=== PATIENT | male | born 1970 | race Caucasian/White ===

== ENCOUNTER 2023-12-24 05:56 | Inpatient (IN) | payer BC, SELFPAY ==
[2023-12-24] VITALS (12 sets, daily range): BP systolic 106–143; BP diastolic 66–89; BMI 32.6; BMI 32.8
[2023-12-24 03:02] LABS: % Basophils 0.3 % (0-2); % Eosinophils 0.3 % (0-6); % Immature Granulocytes 0.3 % (0-0.5); % Lymphocytes 10.3 % (20.5-51.1); % Monocytes 6.3 % (1.7-9.3); % Neutrophils 82.5 % (42.2-75.2); Absolute Lymphocytes 1.2 10^3/uL (1.2-3.4); Absolute Monocytes 0.8 10^3/uL (0.1-0.6); Absolute Neutrophils 9.9 10^3/uL (1.4-6.5); Hematocrit 37.3 % (39.0-52.0); Hemoglobin 13.3 g/dL (13.0-18.0); Mean Corp Hgb Conc. 35.7 g/dL (33.0-37.0); Mean Corpuscular Hgb 31.7 pg (27.0-31.0); Mean Corpuscular Volume 88.8 fL (80.0-94.0); Mean Platelet Volume 11.1 fL (7.4-10.4); Nucleated Red Blood Cells % 0 % (-); Platelet Count 179 10^3/uL (130-400); Red Cell Dist. Width 11.9 % (11.5-14.5)
--- NOTE | 2023-12-24 03:06 | ED.GENMED ---
History of Present Illness
<Ethel Horvath PA-C - Last Filed: 12/26/23 15:04>
General
Chief Complaint: Back Pain
Source: patient
Exam Limitations: none
Time Seen by Provider: 12/24/23 02:20
Nursing documentation reviewed up to this point in time: agreed with
Travel History
Have you had any contact with someone who has COVID-19?: No
Do you have any symptoms of coronavirus? Fever > 100 degrees, chills, cough, shortness of breath, sore throat, loss of taste or smell, muscle aches, or headache?: Yes
Symptoms:: fever
History of Present Illness
History of Present Illness:
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
complicated by periprosthetic femur fx dx a few months ago, partial weight bearing with a crutch on left leg
hre with 3 days of right sided back pain
initiatlly thought to be due to overdoing it when he was swimming. He thought may be just pulled some muscles. He has been taking ibuprofen 3 times a day which does significantly help. He is able to still do activities but then last night he had
an episode where he felt like it went into spasm and he had trouble breathing. Patient says he was hyperventilating and having a large hard time taking deep breaths. He was able to take Motrin and waited out and it calmed down. Again that type of
episode happened this evening around 1130 and lasted about half an hour. Patient's says that he was in distress when she got to him, he was hyperventilating and unable to move to get up from lying down. Both episodes happen when he laid down
flat in his bed. Patient has not had any radiation of pain around his abdomen or down his legs. He has not had any coughing or cold symptoms. He did have a cough 2 weeks ago which was COVID-negative. Patient has not had any urinary distress or
hematuria. He has never had a kidney stone. He never got nauseated but did get some GERD symptoms following both of the more hyperventilating episodes. Now just laying here is about 5 out of 10 discomfort on the right back but when he takes a
deep breath it is 8 out of 10. Patient last took Motrin around 11:30 PM.
Last year he had a negative stress test which was done because of an abnormal EKG, with a chronic T wave inversion.
Patient does have a history of what sounds to be superficial thrombophlebitis after travel on an airplane few years ago which was not anticoagulated
Past History
<Ethel Horvath PA-C - Last Filed: 12/26/23 15:04>
Past History
ED Past Medical History: None
ED Past Surgical History: None
Social History
Tobacco: Non-smoker
Alcohol: Occasional
Drug: None
Personal:
Living: with family
Review of Systems
<Ethel Horvath PA-C - Last Filed: 12/26/23 15:04>
Review of Systems
Allergies reviewed?: Yes
All Other Systems: Not applicable
Phy Exam
<JAYRO Omalley Last Filed: 12/26/23 15:04>
Physical Exam
Physical Exam:
GENERAL: Alert , in no apparent distress
EYE: pupils equal and reactive
NECK: Supple
ENT: o/p clr, mmm.
CARDIAC: Regular rate and rhythm .
LUNGS: Clear breath sounds bilaterally, no acute respiratory distress, no wheezes/rales/rhonchi
No obvious crackles. No cough
ABDOMEN: Soft, without focal tenderness, no r/g, no cvat, normal bowel sounds negative Mccord sign
NEUROLOGICAL: Alert and oriented, no focal neuro deficits
SKIN: Warm and dry, skin intact.
MUSCULOSKELETAL: Left calf appears slightly more swollen than the right, no tenderness
PSYCH: Normal and appropriate interaction.
Course
<Ethel Horvath PA-C - Last Filed: 12/26/23 15:04>
Orders/Labs/Results
Orders:
Orders
12/24/23 00:12
EKG- Treatment ONCE
12/24/23 02:07
Electrocardiogram (*1) Urgent
Reason for Study: Other
Other Reason for Exam: Possible Sepsis
Cardiac Monitoring- Treatment ONCE
IV Insert/Care/Rem.- Treatment PRN
O2 Therapy [RESP] Urgent
Titrate/Wean O2 to maintain O2 sat greater than (%): 93
Special Instructions: TO MAINTAIN CONTINUOUS O2 SATS > OR = 93%
Pulse Ox/cont/shift [RESP] Urgent
Quantity: 1
Special Instructions: CONTINUOUS
12/24/23 02:08
EKG- Treatment ONCE
12/24/23 02:51
Complete Blood Count/With Diff Urgent
Comprehensive Metabolic Panel Urgent
Lactic Acid Q4H
Comment: ON ICE, CANCEL 2ND ORDER IF FIRST LACTIC ACID LEVEL <2
Blood Culture Q30M
SONIA Source: Blood/Venous
Specimen Description:
Comment: FROM 2 SEPARATE SITES
Blood Culture Q30M
SONIA Source: Blood/Venous
Specimen Description:
Comment: FROM 2 SEPARATE SITES
12/24/23 03:02
CT Chest Pe Study Urgent
Comment:
Reason For Exam: RIGHT SIDED PLEURITIC BACK PAIN
Acetaminophen [Tylenol] 650 mg PO NOW STA
12/24/23 03:09
Troponin I Urgent
12/24/23 03:33
Urinalysis Reflex To Culture Urgent
Date Specimen was Collected: 12/24/23
Time Specimen was Collected: 02:08
12/24/23 03:34
PTT Urgent
Prothrombin Time Urgent
Comment: REDAW, ORIGINAL SAMPLE WAS UNDERFILLED
12/24/23 04:47
Heparin 8,700 units IV NOW STA
12/24/23 05:00
Heparin 30745 Units/250 ml 25,000 units in 250 ml IV PER PROTOCOL
Weight to be used for heparin protocol in kilograms (kg):: 108.862
Protocol:: DVT/PE
PTT Goal Range to be used:: PTT 73 to 111 seconds
Order type:: Initial
INITIAL Infusion Dose (UNITS/KG/hr) & then follow protocol:: 18 units/kg/hr
Infusion Dose in UNITS/hr & then follow protocol (UNITS/hr):: 2,000
INFUSION RATE in mL/hr & then follow protocol (mL/hr):: 20
For DVT/PE algorithm, re-bolus for low PTT?: Yes
PTT less than or equal to 64 seconds:: Re-bolus 80 units/kg (max 10,000units). Increase by 400 units/hr
(+ 4mL/hr)
PTT 64.1 to 72.9 seconds:: Re-bolus 40 units/kg (max 5,000 units). Increase by 200 units/hr
(+ 2mL/hr)
PTT 73 to 111 seconds:: Target Range. No change in rate.
PTT 111.1 to 130.9 seconds:: Decrease rate by 200 units/hr (- 2 mL/hr)
PTT 131 to 199.9 seconds:: HOLD for 1 hr. Then decrease by 300 units/hr (- 3mL/hr)
PTT greater than or equal to 200 seconds:: HOLD for 2 hrs & Notify Provider. Then decrease by 400 units/hr
(- 4mL/hr)
Lab follow-up:: Each change, PTT q6h until 2 consecutive are therapeutic. Then
PTT daily.
12/24/23 05:03
Heparin 8,700 units IV PRN PRN
12/24/23 05:04
Heparin 4,400 units IV PRN PRN
12/24/23 05:17
Admit/Transfer Patient As Directed
Co-Sign Provider:
Level of Care: Inpatient admission
Assign to:: Telemetry
Physician / Group: manny
Diagnosis: acute provoked PE, Rt sided pleuritic CP
Reason for Telemetry: Other
Other Reason for Telemetry: acute PE
Date to Stop Telemetry: 12/26/23
Time to Stop Telemetry: 11:00
Reason for Hospitalization: acute provoked PE, Rt sided pleuritic CP , marginal hypoxic RI
Expected length of stay greater than two midnights?: Yes
ELOS- Estimated Length of Stay in days: 3
I certify the patient meets the requirements for IP care: Yes
12/24/23 05:18
Code Status As Directed
Resuscitation Status: Full Code
12/24/23 Breakfast
Regular
At Your Request: Full Participation
Does patient need a safe tray?: No
Flush (0.9% Sodium Chloride) [Flush (Nss)] See Dose Instructions IV PER PROTOCOL
12/24/23 08:40
Ascorbic Acid [Vitamin C] 500 mg PO DAILY
Cholecalciferol (Vitamin D3) [VITAMIN D3 (cholecalciferol)] 25 mcg PO DAILY
Oxycodone/Acetaminophen [Percocet 5/325] 1 tablet PO Q4HPRN PRN
12/24/23 08:40
Consult Notification Routine
Specialty to Notify: Pulmonary
Date consulting provider notified: 12/24/23
Time consulting provider notified: 08:59
Notified:: Provider
Comment: TT NOTIFIED
PULMONARY CONSULT Routine
Consulting Provider: Kwesi Ann
Was physician already notified: No
Reason for consult: acute PE
Activity As Directed
Activity Level: With Assistance
Bladder Scan As Directed
Follow Bladder Retention/Intermittent Cath Algorithm?: Yes
Frequency: Per Retention Algorithm
Comment: as per intermittent urinary catheter algorithm
Bladder Scan As Directed
Follow Bladder Retention/Intermittent Cath Algorithm?: Yes
PRN if no void in __ hours: 6
Frequency: Per Retention Algorithm
If Bladder Scan Result >: 400
then:: Straight cath
Intake/ Output As Directed
Frequency: Per unit guidelines
Straight Cath As Directed
Frequency: Per Retention Algorithm
Additional Instructions: as per intermittent urinary catheter algorithm
Straight Cath As Directed
Frequency: Per Retention Algorithm
Additional Instructions: straight cath as needed per acute urinary retention algorithm for 24 hrs
Additional Instructions: for bladder scan greater than 400 mL
Vital Signs As Directed
Frequency: Per unit guidelines
Pulse Ox/cont/shift [RESP] Routine
Quantity: 1
Special Instructions: check O2 Sat Q8 hours and at each change in oxygen liter flow and FiO2
US Periph Venous LOWER Ext Adam Routine
Comment:
Reason For Exam: DVT/PE
12/24/23 11:06
PTT Urgent
12/25/23 06:00
Occupational Therapy Consult [Ot Eval And Treat] IN AM
Physical Therapy Consult [Pt Eval And Treat] IN AM
Activity Level: With Assistance
12/26/23 11:00
DC Protocol for Telemetry ONCE
Abnormal Lab Results
12/24/23
02:51
WBC 12.0 H 10^3/uL
(4.8-10.8)
RBC 4.20 L 10^6/uL
(4.70-6.10)
Hct 37.3 L %
(39.0-52.0)
MCH 31.7 H pg
(27.0-31.0)
MPV 11.1 H fL
(7.4-10.4)
Absolute Neuts (auto) 9.9 H 10^3/uL
(1.4-6.5)
Absolute Monos (auto) 0.8 H 10^3/uL
(0.1-0.6)
Neutrophils % 82.5 H %
(42.2-75.2)
Lymphocytes % 10.3 L %
(20.5-51.1)
BUN 21 H mg/dl
(9-20)
Glucose 138 H mg/dl
(70-99)
12/24/23 02:51
12/24/23 02:51
Vital Signs
Initial and Last Documented VS:
Initial Vital Signs
Temp Pulse Resp BP Pulse Ox
100.4 F H 100 20 143/83 97
12/24/23 00:17 12/24/23 00:17 12/24/23 00:17 12/24/23 00:17 12/24/23 00:17
Last Documented Vital Signs
Temp Pulse Resp BP Pulse Ox
98.1 F 83 18 143/93 99
12/26/23 07:30 12/26/23 11:30 12/26/23 11:30 12/26/23 11:30 12/26/23 11:30
beth;Anthony Gonzalez DO - Last Filed: 12/24/23 05:06>
Orders/Labs/Results
Orders:
Orders
12/24/23 00:12
EKG- Treatment ONCE
12/24/23 02:07
Electrocardiogram (*1) Urgent
Reason for Study: Other
Other Reason for Exam: Possible Sepsis
Cardiac Monitoring- Treatment ONCE
IV Insert/Care/Rem.- Treatment PRN
O2 Therapy [RESP] Urgent
Titrate/Wean O2 to maintain O2 sat greater than (%): 93
Special Instructions: TO MAINTAIN CONTINUOUS O2 SATS > OR = 93%
Pulse Ox/cont/shift [RESP] Urgent
Quantity: 1
Special Instructions: CONTINUOUS
12/24/23 02:08
EKG- Treatment ONCE
12/24/23 02:51
Complete Blood Count/With Diff Urgent
Comprehensive Metabolic Panel Urgent
Lactic Acid Q4H
Comment: ON ICE, CANCEL 2ND ORDER IF FIRST LACTIC ACID LEVEL <2
Blood Culture Q30M
SONIA Source: Blood/Venous
Specimen Description:
Comment: FROM 2 SEPARATE SITES
Blood Culture Q30M
SONIA Source: Blood/Venous
Specimen Description:
Comment: FROM 2 SEPARATE SITES
12/24/23 03:02
CT Chest Pe Study Urgent
Comment:
Reason For Exam: RIGHT SIDED PLEURITIC BACK PAIN
Acetaminophen [Tylenol] 650 mg PO NOW STA
12/24/23 03:09
Troponin I Urgent
12/24/23 03:33
Urinalysis Reflex To Culture Urgent
Date Specimen was Collected: 12/24/23
Time Specimen was Collected: 02:08
12/24/23 03:34
PTT Urgent
Prothrombin Time Urgent
Comment: REDAW, ORIGINAL SAMPLE WAS UNDERFILLED
12/24/23 04:47
Heparin 8,700 units IV NOW STA
12/24/23 05:00
Heparin 62452 Units/250 ml 25,000 units in 250 ml IV PER PROTOCOL
Weight to be used for heparin protocol in kilograms (kg):: 108.862
Protocol:: DVT/PE
PTT Goal Range to be used:: PTT 73 to 111 seconds
Order type:: Initial
INITIAL Infusion Dose (UNITS/KG/hr) & then follow protocol:: 18 units/kg/hr
Infusion Dose in UNITS/hr & then follow protocol (UNITS/hr):: 2,000
INFUSION RATE in mL/hr & then follow protocol (mL/hr):: 20
For DVT/PE algorithm, re-bolus for low PTT?: Yes
PTT less than or equal to 64 seconds:: Re-bolus 80 units/kg (max 10,000units). Increase by 400 units/hr
(+ 4mL/hr)
PTT 64.1 to 72.9 seconds:: Re-bolus 40 units/kg (max 5,000 units). Increase by 200 units/hr
(+ 2mL/hr)
PTT 73 to 111 seconds:: Target Range. No change in rate.
PTT 111.1 to 130.9 seconds:: Decrease rate by 200 units/hr (- 2 mL/hr)
PTT 131 to 199.9 seconds:: HOLD for 1 hr. Then decrease by 300 units/hr (- 3mL/hr)
PTT greater than or equal to 200 seconds:: HOLD for 2 hrs & Notify Provider. Then decrease by 400 units/hr
(- 4mL/hr)
Lab follow-up:: Each change, PTT q6h until 2 consecutive are therapeutic. Then
PTT daily.
12/24/23 05:03
Heparin 8,700 units IV PRN PRN
12/24/23 05:04
Heparin 4,400 units IV PRN PRN
12/24/23 05:17
Admit/Transfer Patient As Directed
Co-Sign Provider:
Level of Care: Inpatient admission
Assign to:: Telemetry
Physician / Group: htay
Diagnosis: acute provoked PE, Rt sided pleuritic CP
Reason for Telemetry: Other
Other Reason for Telemetry: acute PE
Date to Stop Telemetry: 12/26/23
Time to Stop Telemetry: 11:00
Reason for Hospitalization: acute provoked PE, Rt sided pleuritic CP , marginal hypoxic RI
Expected length of stay greater than two midnights?: Yes
ELOS- Estimated Length of Stay in days: 3
I certify the patient meets the requirements for IP care: Yes
12/24/23 05:18
Code Status As Directed
Resuscitation Status: Full Code
12/24/23 Breakfast
Regular
At Your Request: Full Participation
Does patient need a safe tray?: No
Flush (0.9% Sodium Chloride) [Flush (Nss)] See Dose Instructions IV PER PROTOCOL
12/24/23 08:40
Ascorbic Acid [Vitamin C] 500 mg PO DAILY
Cholecalciferol (Vitamin D3) [VITAMIN D3 (cholecalciferol)] 25 mcg PO DAILY
Oxycodone/Acetaminophen [Percocet 5/325] 1 tablet PO Q4HPRN PRN
12/24/23 08:40
Consult Notification Routine
Specialty to Notify: Pulmonary
Date consulting provider notified: 12/24/23
Time consulting provider notified: 08:59
Notified:: Provider
Comment: TT NOTIFIED
PULMONARY CONSULT Routine
Consulting Provider: Kwesi Ann
Was physician already notified: No
Reason for consult: acute PE
Activity As Directed
Activity Level: With Assistance
Bladder Scan As Directed
Follow Bladder Retention/Intermittent Cath Algorithm?: Yes
Frequency: Per Retention Algorithm
Comment: as per intermittent urinary catheter algorithm
Bladder Scan As Directed
Follow Bladder Retention/Intermittent Cath Algorithm?: Yes
PRN if no void in __ hours: 6
Frequency: Per Retention Algorithm
If Bladder Scan Result >: 400
then:: Straight cath
Intake/ Output As Directed
Frequency: Per unit guidelines
Straight Cath As Directed
Frequency: Per Retention Algorithm
Additional Instructions: as per intermittent urinary catheter algorithm
Straight Cath As Directed
Frequency: Per Retention Algorithm
Additional Instructions: straight cath as needed per acute urinary retention algorithm for 24 hrs
Additional Instructions: for bladder scan greater than 400 mL
Vital Signs As Directed
Frequency: Per unit guidelines
Pulse Ox/cont/shift [RESP] Routine
Quantity: 1
Special Instructions: check O2 Sat Q8 hours and at each change in oxygen liter flow and FiO2
US Periph Venous LOWER Ext Adam Routine
Comment:
Reason For Exam: DVT/PE
12/24/23 11:06
PTT Urgent
12/25/23 06:00
Occupational Therapy Consult [Ot Eval And Treat] IN AM
Physical Therapy Consult [Pt Eval And Treat] IN AM
Activity Level: With Assistance
12/26/23 11:00
DC Protocol for Telemetry ONCE
Abnormal Lab Results
12/24/23
02:51
WBC 12.0 H 10^3/uL
(4.8-10.8)
RBC 4.20 L 10^6/uL
(4.70-6.10)
Hct 37.3 L %
(39.0-52.0)
MCH 31.7 H pg
(27.0-31.0)
MPV 11.1 H fL
(7.4-10.4)
Absolute Neuts (auto) 9.9 H 10^3/uL
(1.4-6.5)
Absolute Monos (auto) 0.8 H 10^3/uL
(0.1-0.6)
Neutrophils % 82.5 H %
(42.2-75.2)
Lymphocytes % 10.3 L %
(20.5-51.1)
BUN 21 H mg/dl
(9-20)
Glucose 138 H mg/dl
(70-99)
12/24/23 02:51
12/24/23 02:51
Vital Signs
Initial and Last Documented VS:
Initial Vital Signs
Temp Pulse Resp BP Pulse Ox
100.4 F H 100 20 143/83 97
12/24/23 00:17 12/24/23 00:17 12/24/23 00:17 12/24/23 00:17 12/24/23 00:17
Last Documented Vital Signs
Temp Pulse Resp BP Pulse Ox
98.1 F 83 18 143/93 99
12/26/23 07:30 12/26/23 11:30 12/26/23 11:30 12/26/23 11:30 12/26/23 11:30
<Ethel Horvath PA-C - Last Filed: 12/26/23 15:04>
MDM/Problems Addressed
Differential Diagnosis Includes:
PE, pleural effusion, pneumonia, kidney stone, musculoskeletal back pain
MDM/Problems Addressed:
53-year-old male with a history of what sounds to be superficial thrombophlebitis in the past presents for atraumatic right-sided back pain, it did start after he was swimming but he cannot recall any injury. It seems to be pleuritic and worse with
lying down. He is now having some shortness of breath episodes. The last 1 was around 11:30 PM where he felt like he could not catch his breath and became very anxious. Patient was hyperventilating and then unable to move from a lying position
from his bed for about a half an hour before the Motrin kicked in and now he is able to move and take deeper breaths. Patient says following that episode lasting a half an hour he got some GERD symptoms. He never had any chest pain. Patient's not
had any urinary symptoms, radiation of pain into his abdomen or down his legs. He has no known aortic disease, he has never had a PE. He had has had some ongoing issues with left leg pain near a total hip replacement, he does have a stress
fracture of his femur and has been partially weightbearing for a couple of weeks.
On exam on arrival he had a low-grade temperature and a heart rate of 100.
He has some pleuritic right-sided back pain, not reproducible with palpation, no CVA tenderness. He is not having any urinary symptoms. Given his ongoing leg issues and slight immobility I suspect that a PE is higher on the differential and will
require CT imaging. Patient has some nonspecific ST changes in the lateral leads on his EKG. He is stable blood pressure, I do not suspect aortic dissection. Patient will also need to provide a urine sample.
signed out to dr. gonzalez pending results
<Ethel Horvath PA-C - Last Filed: 12/26/23 15:04>
*Critical Care Note
Total Time (30-74mins, 75-104mins- exclusive of procedures): Not Applicable
ED Attending Note
<Ethel Horvath PA-C - Last Filed: 12/26/23 15:04>
-
Portions of this chart may have been created with voice recognition software.� Occasional wrong word or��sound alike� substitutions may have occurred due to the inherent limitations of voice recognition software.
<Anthony Gonzalez DO - Last Filed: 12/24/23 05:06>
ED Attending Note
Patient seen and examined by attending physician: Yes
I performed the substantive portion of visit, reviewed & personally made and approve the management plan that is documented in note by myself or JUD.: Yes
ED Attending Note:
I agree with Rosalee's note
53-year-old male presents to the emergency room complaining of right thoracic and flank pain. Patient states he has been having some discomfort for the past few days but at 1130 he had a very severe onset of pain. Worst pain he can recall ever
having. Mild shortness of breath. Patient had left hip replacement surgery and postoperatively developed a stress fracture near the prosthesis. Because of this he has been only partially weightbearing on the left leg.
General: Awake, Alert, Oriented X3. Appears somewhat uncomfortable
Vitals: unremarkable
Head: Atraumatic
Eyes: Pupils equal, EOMI
Throat: Airway intact, no exudates
Neck: Trachea midline
Lungs: Clear and equal b/l
Heart: Regular rate, no murmurs
Abd: Soft, Nontender, No pulsatile mass
Neuro: Nonfocal
Skin: Warm, dry, no rash
Extremities: pulses equal b/l, no edema
CT angiogram is positive for pulmonary emboli. Significant clot burden on the right with a pulmonary infarct. There are also subsegmental pulm emboli noted on the left.
I evaluated the patient at 0503. He is hemodynamically stable. He is not hypoxic. He is conversant and appears comfortable in bed.
Heparin ordered. Case signed out to the hospitalist. He will require a DVT study of the left leg but this can be done as an inpatient as the decision has already been made to anticoagulate him.
Discharge Plan
Departure
Patient Disposition: Admit
Date of Disposition: 12/24/23
Time of Disposition: 05:04
Presentation/result/management discussed w/ accepting MD/DO: Hospitalist
Condition: Serious
Discharge Problem:
Pulmonary emboli, Pulmonary infarction
Interventions
Interventions:
*Risk Screen - Suicide Last Done: 12/24/23 00:17
*General Assessment Last Done: 12/24/23 00:17
*Neglect/Abuse Screening Last Done: 12/24/23 00:17
ED- Fall Risk Assessment Last Done: 12/24/23 00:17
*ED COVID-19 Vaccine History Last Done: 12/24/23 00:17
*Nursing Disposition Last Done: 12/24/23 08:33
ED-Musculoskeletal Assessment Last Done: 12/24/23 03:00
ED- Neurological Assessment Last Done: 12/24/23 03:00
ED-Skin Assessment Last Done: 12/24/23 03:00
Discharge Date and Time
Discharge Date/Time: 12/24/23 08:33
[2023-12-24 03:19] LABS: Lactic Acid 1.1 mmol/L (0.7-2.0)
[2023-12-24 03:20] LABS: ALT (SGPT) 21 U/L (0-50); AST (SGOT) 20 U/L (17-59); Albumin 4.2 g/dl (3.5-5.0); Alkaline Phosphatase 56 U/L (38-126); Blood Urea Nitrogen 21 mg/dl (9-20); Calcium 9.5 mg/dl (8.4-10.2); Carbon Dioxide 24 mmol/L (22-30); Chloride 102 mmol/L (98-107); Glucose 138 mg/dl (70-99); Potassium 4.5 mmol/L (3.5-5.1); Sodium 137 mmol/L (135-145); Total Bilirubin 1.1 mg/dl (0.2-1.3); Total Protein 6.9 g/dl (6.3-8.2); eGFR > 60.00
[2023-12-24 03:44] LABS: Troponin I < 0.012 ng/ml
[2023-12-24 03:45] LABS: Urine Albumin Negative (Neg - Trace); Urine Bilirubin Negative (Negative); Urine Character Clear (Clear); Urine Color Yellow; Urine Glucose Negative (Negative); Urine Ketone Negative (Negative); Urine Leukocyte Negative (Negative); Urine Nitrite Negative (Negative); Urine Occult Blood Negative (Negative); Urine Urobilinogen Negative (Neg - 1+)
[2023-12-24 03:53] LABS: INR 1.05; PT 13.5 Sec (11.4-14.6)
[2023-12-24 03:54] LABS: APTT 29.3 Sec (23.4-35.0)
[2023-12-24] MEDS: TYLENOL 650 MG PO ×5 (04:06→21:46)
[2023-12-24] MEDS: HEPARIN 25000 UNITS/250 ML IV ×2 (05:10→19:08)
[2023-12-24] MEDS: HEPARIN 8700 UNITS IV ×2 (05:10→20:59)
--- NOTE | 2023-12-24 05:13 | HPS.HSE ---
Family Physician
-
Family Physician: Chris Perales
Chief Complaint
-
Rt sided back pain
History of Present Illness
HPI
53M No significant PNHx , s/p THR Dec 2022 complicated by periprosthetic femur fx dx a few months ago, partial weight bearing with a crutch on left leg pw 3 days of right sided back pain. He has been taking ibuprofen 3 times a day which does
significantly help. last night he had an episode where he felt like it went into spasm and he had trouble breathing.
Cough 2 weeks ago which was COVID-negative. Patient has not had any urinary distress or hematuria. He has never had a kidney stone.
Last year he had a negative stress test which was done because of an abnormal EKG, with a chronic T wave inversion.
HX presumed superficial thrombophlebitis after travel on an airplane few years ago which was not anticoagulated
Medical History
Past Medical History
Past Medical History: Reports None
Past Surgical History: Reports None
Social History
Tobacco: Non-smoker
Alcohol: None
Personal:
Living: With Family
Family History
Family History: Not pertinent
Allergies / Home Medications
Allergies reflects when Allergies were last updated in [facility].
Home Medications with original date entered in [facility]
Allergy/Medication List:
Allergies
Allergy/AdvReac Type Severity Reaction Status Date / Time
No Known Allergies Allergy Verified 12/24/23 00:17
Home Medications
ascorbic acid (vitamin C) 500 mg tablet (Vitamin C) 500 mg PO DAILY 12/24/23
cholecalciferol (vitamin D3) 25 mcg (1,000 unit) tablet (Vitamin D3) 25 mcg PO DAILY 12/24/23
Review of Systems
-
Constitutional: Reports No Symptoms
EENT: Reports No Symptoms
Respiratory: Reports See HPI and Trouble Breathing
Cardiac: Reports No Symptoms
Abdomen/GI: Reports No Symptoms
: Reports No Symptoms
Musculoskeletal: Reports See HPI
Skin: Reports No Symptoms
Neurological: Reports No Symptoms
Endocrine: Reports No Symptoms
Hematologic/Lymphatic: Reports No Symptoms
Psych: Reports No Symptoms
Physical Exam
Vital Signs
Vital Signs
Temp Pulse Resp BP Pulse Ox
98.4 F 71 0 123/71 93
12/24/23 02:55 12/24/23 04:30 12/24/23 04:15 12/24/23 04:05 12/24/23 04:30
Physical Exam
General: Other (see below )
Laboratory Results
-
12/24/23 02:51
12/24/23 02:51
Laboratory Results
PT 13.5 Sec (11.4-14.6) 12/24/23 03:34
INR 1.05 12/24/23 03:34
APTT 29.3 Sec (23.4-35.0) 12/24/23 03:34
Lactic Acid Cancelled 12/24/23 06:15
Total Bilirubin 1.1 mg/dl (0.2-1.3) 12/24/23 02:51
AST 20 U/L (17-59) 12/24/23 02:51
ALT 21 U/L (0-50) 12/24/23 02:51
Alkaline Phosphatase 56 U/L (38-126) 12/24/23 02:51
Troponin I < 0.012 ng/ml 12/24/23 03:09
Data Reviewed
-
CT Scan: Report Reviewed by me
Lab Data: Labs Reviewed by me
Impression/Plan
-
Reviewed VS: unremarkable except marginal Pox 93 on RA
PE
Gen: NAD
HEENT: anicteric no pallor
Neck: supple
Lungs: CTA, NAD,
Cor: RRR S1 S2
Abdomen: Soft, without focal tenderness,
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
MS: Left calf slightly more swollen than the right, no tenderness
Psych: normal mood aand affect
Data
WCC 12
INR 1.0
unremarkable BMP
BG 138
NEG TPNI
NEG UA
CTA for PE protocol
B/L PEs- lobar at segmental
Potential RH strain
partial RLL pul infarct
ASSESSMENT & PLAN
Acute multple PEs suspect provoked
Associated Rt sided pleurisy due to partial RLL Pul infarct
HD stable
HX partial WET bearing for RT sided periprosthetic femur Fx
- Agree with Heparin gtt
- Percocet PRN for pain
- O2 to keep POx > 93
- US both legs
- ECHO in AM
- Pul consult
HX partial WET bearing for Rt sided periprosthetic femur
- PT/OT
DVT Px: on Heparin gtt
Code: Full
IP TLM
--- NOTE | 2023-12-24 08:01 | W.PN.HOSP.TC ---
Today's Communication/Plan
-
Continue anticoagulation. Ultrasound right leg and echocardiogram.
Assessment / Plan
Assessment / Plan
Physical exam:
General: Well Developed, Well Nourished. Some Apparent Distress due to pain.
HEENT: Normocephalic, Atraumatic and Moist Mucous Membranes
Respiratory: Clear to Auscultation; Negative Wheezes, Rales or Rhonchi
Cardiac: Regular Rhythm and S1/S2
GI: Soft, Nontender and Nondistended
Musculoskeletal: No Clubbing, No Cyanosis and No Edema
Neuro: Awake, Alert and Oriented
Psych: Calm
A/P:
Acute multiple�PE's suspect provoked in the setting of lack of mobility over the last few weeks due to recent stress fracture. He does have a history of thromboembolism related to flight in the past(?superficial). Could do hypercoagulable workup
as outpatient if needed.
Associated Rt sided pleurisy due to partial RLL Pul infarct
-Hemodynamically stable
- Agree with Heparin gtt
-Tylenol for pain as needed. He does not want to use any narcotics although I advised him not to allow pain to get out of control. Increase acetaminophen (as long as not to exceed 4 g a day total).
-Ordered some oxycodone if needed. Added bowel regimen.
- O2 to keep POx > 93
- US left lower extremity no DVT
-I checked right lower extremity ultrasound and it came back with right popliteal vein and peroneal vein thrombosis.
-I Ordered transthoracic Echo today.
-PT OT eval
-Discussed with girlfriend at bedside and attending RN.
Hx L [facility]/Left periprosthetic femur with recent stress fracture:
- PT/OT
-Pain control
DVT Px: on Heparin gtt
Code: Full
Anticipated Discharge: 24 - 48 hours
Subjective/Interval History
-
Date of Service: December 24, 2023
Patient complains of back pain, he also complains of pleuritic discomfort when he takes deep breath.
Objective Data
-
Labs:
Laboratory Results
12/24/23 12/24/23 12/24/23
02:51 03:09 03:34
WBC 12.0 H
Hgb 13.3
Hct 37.3 L
Plt Count 179
PT Cancelled 13.5
INR Cancelled 1.05
APTT Cancelled 29.3
Sodium 137
Potassium 4.5
Chloride 102
Carbon Dioxide 24
BUN 21 H
Creatinine 0.9
Glucose 138 H
Calcium 9.5
Total Bilirubin 1.1
AST 20
ALT 21
Alkaline Phosphatase 56
12/24/23
11:10
WBC
Hgb
Hct
Plt Count
PT
INR
APTT Pending
Sodium
Potassium
Chloride
Carbon Dioxide
BUN
Creatinine
Glucose
Calcium
Total Bilirubin
AST
ALT
Alkaline Phosphatase
Vital Signs:
Vital Signs
Temp Pulse Resp BP Pulse Ox
98.4 F 74 17 120/67 93
12/24/23 02:55 12/24/23 07:30 12/24/23 07:30 12/24/23 07:00 12/24/23 07:30
--- NOTE | 2023-12-24 09:00 | PTCARENOTE ---
Pt admitted into room 414-1. Pt ambulated with standby assistance from stretcher to bed. Heparin drip infusing at 20mL/hr. VSS. Tele showing NSR with PAC. Pt reporting pain in R posterior back with deep breath that is improved with tylenol. Pt
oriented to room and has call alonso within reach.
--- NOTE | 2023-12-24 09:44 | CM ---
Addendum entered by YOU Bellamy 12/24/23 09:48:
He had [facility] after [facility].
Original Note:
Patient out of room for CT Scan. Met Girlfriend, Diego in room. She sometimes stays overnight with patient. She reports he is currently using one crutch on right to try to be 50% WB on LLE. He lives in 3 level home. From garage 7 steps to powder
room. Then 3 more steps to living, dining room and kitchen. UP full flight to bedroom and full bathroom. All DME from [facility] in 2022 he borrowed and has returned.
PCP Dr. Perales
Pharmacy: [facility]
Diego will be able to stay with patient at discharge for as long as he needs assistance. She thinks they could get DME back to house he had after [facility] if needed.
CM to follow for discharge needs.
PLAN: home with support from Diego.
[2023-12-24] MEDS: VITAMIN C 500 MG PO (10:23)
[2023-12-24] MEDS: VITAMIN D3 (cholecalciferol) 25 MCG PO (10:23)
[2023-12-24 11:39] LABS: APTT 135.8 Sec (23.4-35.0)
--- NOTE | 2023-12-24 15:08 | CON.PUL ---
Consultation
Consultation Request
Date/Time Consultation Requested: 12-24-23
Date/Time Consultation Performed: 12-24-23
Requesting Provider: Hospitalist
Performing Provider: Dr Ann
Reason for Consultation: PE
Medical History
-
Chief Complaint: dyspnea
History of Present Illness:
Mr Anthony Ordoñez is a 53/M adm 12-24 with acute onset dyspnea and back pain.
Noticed h/o L [facility]R Dec 2022 for severe OA, then developed worsening L thigh pain in Jun 2023, reevaluated by ortho, diagnosed with periprosthetic femur fracture, rec conservative mgmt with PT and to slow down physical activity, as pain in LLE
continued he was reevaluated by second opinion, rec no surgical intervention but to reduce physical activity and use a crutch to reduce strain on LLE periprosthetic fracture, following instructions he decreased his physical activity substantially
since late Oct 2023, though tried to stay active with water exercises and swimming.
Noted 3 d h/o R back pain and then acute dyspnea on late evening of 12-23 to the point that he could not get up from bed due to pain and dyspnea.
Reported h/o superficial thrombophlebitis in RLE 4 y ago after extensive airtravel during a period of 10 d, did not require AC but did not receive follow up doppler US.
At ER, chest CTA showed bilateral PE and RLE DVT, started on IV heparin protocol
LLNS, yearly check ups with PCP, benign colonic polyp on colonoscopy 2 y ago, normal PSA 1 y ago. No personal or FH VTE
Past Medical History
Past Medical History: Other (see A&P for PMH/PSH)
Social History
Tobacco: Non-smoker
Alcohol: Occasional
Drug: None
Personal:
Living: With Family
Employment: Employed
Family History
Family History: Reviewed & Not Pertinent
Allergies / Home Medications
Allergies
Allergy/AdvReac Type Severity Reaction Status Date / Time
No Known Allergies Allergy Verified 12/24/23 00:17
Home Medications
Medication Instructions Recorded Confirmed Last Taken Type
ascorbic acid (vitamin C) 500 mg 500 mg PO DAILY 12/24/23 12/24/23 Unknown History
tablet (Vitamin C)
cholecalciferol (vitamin D3) 25 25 mcg PO DAILY 12/24/23 12/24/23 Unknown History
mcg (1,000 unit) tablet (Vitamin
D3)
Review of Systems
-
History Source: Patient
All other systems: Negative unless noted
Respiratory: Trouble Breathing
Musculoskeletal: Other (R back pain)
Vitals / Labs / Diagnostic Testing
Vital Signs
Temp Pulse Resp BP Pulse Ox
98.7 F 69 18 120/75 96
12/24/23 11:00 12/24/23 11:00 12/24/23 11:00 12/24/23 11:00 12/24/23 11:00
Lab Data
12/24/23 02:51
12/24/23 02:51
Laboratory Results
12/24/23 12/24/23 12/24/23
03:09 03:34 11:06
PT Cancelled 13.5
INR Cancelled 1.05
APTT Cancelled 29.3 135.8 H
Diagnostic Testing:
Physical Exam
-
HEENT: Normocephalic and Moist Mucous Membranes
Cardiovascular: Regular Rhythm, Murmur (n), Peripheral Edema (trace RLE edema), Calf Tenderness (n) and JVD (n)
Respiratory: Clear and Non-Labored Respirations
GI: Soft, Non Distended and Non Tender
Neurology: Awake, AO x 3 and No Motor Deficits
Skin: Dry
General: Comfortable
Assessment
-
Assessment:
Mr Anthony Ordoñez is a 53/M adm 12-24 with acute onset dyspnea and back pain. Noticed L [facility]R Dec 2022 for severe OA, then developed worsening L thigh pain in Jun 2023, reevaluated by ortho, diagnosed with periprosthetic femur fracture, rec
conservative mgmt with PT and to slow down physical activity, as pain in LLE continued he was reevaluated by second opinion, rec no surgical intervention but to reduce physical activity and use a crutch to reduce strain on LLE periprosthetic
fracture, following instructions he decreased his physical activity substantially since late Oct 2023, though tried to stay active with water exercises and swimming. Noted 3 d h/o R back pain and then acute dyspnea on late evening of 12-23 to the
point that he could not get up from bed due to pain and dyspnea. Reported h/o superficial thrombophlebitis in RLE 4 y ago after extensive airtravel during a period of 10 d, did not require AC but did not receive follow up doppler US. At ER, chest
CTA showed bilateral PE and RLE DVT, started on IV heparin protocol
Impression:
Bilateral PE
RLL, LLL, lingula
R popliteal and peroneal DVT
Basilar atelectatic changes
Pleuritic R back pain
Normal troponin
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
L THR Dec 2022
Periprosthetic femur fracture Jun 2023, rec conservative mgmt
RLE SVT 4 y ago, no AC, no follow up of doppler US
Nonsmoker
Plan:
Resp hathaway stable on RA
Remains hemodyn stable since adm
RLL, LLL, lingular peripheral PE
No candidate for lysis
Started on IV heparin protocol for VTE
Apparently provoked PE and RLE DVT in setting of R periprosthetic femur fracture and significant decrease in physical activity since late Oct 2023 (following advice of conservative mgmt of fracture)
Noted that after L hip surgery in Dec 2022 he received 30 d of prophylactic AC regimen
Reports no personal or family h/o VTE
Uncertain significance of h/o RLE SVT 4 y ago for which no AC was indicated, but did not receive dedicated follow up or doppler afterwards
Can transition to DOAC today
Check D-dimer and BNP
Pending TTE
Reviewed TTE Dec 2022 at [place], preop test for hip surgery, normal biventricular function
Will need close follow up with pulm and hematology to establish length of AC, assure resolution of clot load, rule out thrombophilia and investigate age/sex related malignancy screening
D/w Mr Ordoñez and his kind at bedside, all questions answered to satisfaction
[2023-12-24 16:56] LABS: NT-proBNP 28.7 pg/ml
[2023-12-24 17:03] LABS: D-Dimer 2.58 ug/mlFEU (0.00-0.50)
[2023-12-24] MEDS: BENADRYL 25 MG PO (21:47)
[2023-12-25] VITALS (8 sets, daily range): BP systolic 115–127; BP diastolic 65–84; PULSE 85; O2SAT 97; BMI 33.0
[2023-12-25] MEDS: ROXICODONE 5 MG PO (01:15)
[2023-12-25] MEDS: TYLENOL 650 MG PO ×5 (01:45→22:48)
[2023-12-25 03:26] LABS: Hematocrit 36.4 % (39.0-52.0); Hemoglobin 12.8 g/dL (13.0-18.0); Mean Corp Hgb Conc. 35.2 g/dL (33.0-37.0); Mean Corpuscular Hgb 31.8 pg (27.0-31.0); Mean Corpuscular Volume 90.5 fL (80.0-94.0); Mean Platelet Volume 11.3 fL (7.4-10.4); Platelet Count 184 10^3/uL (130-400); Red Blood Cell Count 4.02 10^6/uL (4.70-6.10)
[2023-12-25 03:53] LABS: APTT 113.8 Sec (23.4-35.0)
[2023-12-25 04:29] LABS: Blood Urea Nitrogen 22 mg/dl (9-20); Calcium 9.2 mg/dl (8.4-10.2); Carbon Dioxide 27 mmol/L (22-30); Chloride 101 mmol/L (98-107); Estimated Creatinine Clearance 110 ml/min; Glucose 143 mg/dl (70-99); Sodium 137 mmol/L (135-145); eGFR > 60.00
[2023-12-25] MEDS: VITAMIN C 500 MG PO (07:18)
[2023-12-25] MEDS: VITAMIN D3 (cholecalciferol) 25 MCG PO (07:18)
[2023-12-25] MEDS: ELIQUIS 10 MG PO ×2 (10:22→19:50)
--- NOTE | 2023-12-25 10:22 | W.PN.HOSP.TC ---
Today's Communication/Plan
-
Change anticoagulants to oral, plan for echocardiogram. Discharge planning in progress
Assessment / Plan
Assessment / Plan
Physical exam:
General: Well Developed, Well Nourished. Some Apparent Distress due to pain.
HEENT: Normocephalic, Atraumatic and Moist Mucous Membranes
Respiratory: Clear to Auscultation; Negative Wheezes, Rales or Rhonchi
Cardiac: Regular Rhythm and S1/S2
GI: Soft, Nontender and Nondistended
Musculoskeletal: No Clubbing, No Cyanosis and No Edema
Neuro: Awake, Alert and Oriented
Psych: Calm
A/P:
Acute multiple�PE's suspect provoked in the setting of lack of mobility over the last few weeks due to recent stress fracture. He does have a history of thromboembolism related to flight in the past(?superficial). Could do hypercoagulable workup
as outpatient if needed.
Associated Rt sided pleurisy due to partial RLL Pul infarct
-Hemodynamically stable
- Heparin gtt--> will switch to Eliquis today
-Tylenol for pain as needed. He does not want to use any narcotics although I advised him not to allow pain to get out of control. Increase acetaminophen (as long as not to exceed 4 g a day total).
-Ordered some oxycodone if needed. Added bowel regimen.
- O2 to keep POx > 93
- US left lower extremity no DVT
-I checked right lower extremity ultrasound and it came back with right popliteal vein and peroneal vein thrombosis.
-I Ordered transthoracic Echo today.
-PT OT eval
-Discussed with girlfriend at bedside yesterday.
-Discussed about discharge planning and he feels comfortable staying 1 more day; recall with his increased pain last night and we are switching to oral anticoagulants today and still pending echocardiogram.
Hx L [facility]R/Left periprosthetic femur with recent stress fracture:
- PT/OT
-Pain control
DVT Px: on Heparin gtt
Code: Full
Anticipated Discharge: Within 24 hours
Subjective/Interval History
-
Date of Service: December 25, 2023
Patient had a rough night and he tells me that he had to use narcotics. If that he did not want to use narcotics, he admits that it did helped him. Less shortness of breath, pain is more tolerable at this point. Oxygenating well on room air.
Afebrile. No bleeding
Objective Data
-
Labs:
Laboratory Results
12/25/23 12/25/23
03:12 10:10
WBC 10.0
Hgb 12.8 L
Hct 36.4 L
Plt Count 184
APTT 113.8 H Cancelled
Sodium 137
Potassium 4.0
Chloride 101
Carbon Dioxide 27
BUN 22 H
Creatinine 1.0
Glucose 143 H
Calcium 9.2
Vital Signs:
Vital Signs
Temp Pulse Resp BP Pulse Ox
98.0 F 71 18 119/73 94
12/25/23 07:00 12/25/23 07:00 12/25/23 07:00 12/25/23 07:00 12/25/23 07:00
I&O
12/24/23 12/25/23 12/26/23
06:59 06:59 06:59
Intake Total 2159 / 216
Balance 2159 / 216
--- NOTE | 2023-12-25 15:59 | W.PN.PUL3 ---
Today's Communication / Plan
-
AC
TTE
Assessment
-
Assessment:
Mr Anthony Ordoñez is a 53/M adm 12-24 with acute onset dyspnea and back pain. Noticed L [facility] Dec 2022 for severe OA, then developed worsening L thigh pain in Jun 2023, reevaluated by ortho, diagnosed with periprosthetic femur fracture, rec
conservative mgmt with PT and to slow down physical activity, as pain in LLE continued he was reevaluated by second opinion, rec no surgical intervention but to reduce physical activity and use a crutch to reduce strain on LLE periprosthetic
fracture, following instructions he decreased his physical activity substantially since late Oct 2023, though tried to stay active with water exercises and swimming. Noted 3 d h/o R back pain and then acute dyspnea on late evening of 12-23 to the
point that he could not get up from bed due to pain and dyspnea. Reported h/o superficial thrombophlebitis in RLE 4 y ago after extensive airtravel during a period of 10 d, did not require AC but did not receive follow up doppler US. At ER, chest
CTA showed bilateral PE and RLE DVT, started on IV heparin protocol
Impression:
Bilateral PE
RLL, LLL, lingula
R popliteal and peroneal DVT
Basilar atelectatic changes
Pleuritic R back pain
Normal troponin
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
L THR Dec 2022
Periprosthetic femur fracture Jun 2023, rec conservative mgmt
RLE SVT 4 y ago, no AC, no follow up of doppler US
Nonsmoker
Plan:
Resp hathaway stable on RA
Remains hemodyn stable since adm
RLL, LLL, lingular peripheral PE
No candidate for lysis
Started on IV heparin protocol for VTE
Apparently provoked PE and RLE DVT in setting of R periprosthetic femur fracture and significant decrease in physical activity since late Oct 2023 (following advice of conservative mgmt of fracture)
Noted that after L hip surgery in Dec 2022 he received 30 d of prophylactic AC regimen
Reports no personal or family h/o VTE
Uncertain significance of h/o RLE SVT 4 y ago for which no AC was indicated, but did not receive dedicated follow up or doppler afterwards
Transitioned to DOAC today: apixaban
D-dimer 2.58, BNP normal
Pending TTE
Reviewed TTE Dec 2022 at [place] (patient showed me his echo report online), preop test for hip surgery, normal biventricular function
Will need close follow up with pulm ([facility]) and hematology to establish length of AC (rec [place]), assure resolution of clot load, rule out thrombophilia and investigate age/sex related malignancy screening
D/w Mr Ordoñez and his kind at bedside, all questions answered to satisfaction
Subjective Data
-
Date of Service:
Date of Service: December 25, 2023
Chief Complaint: Pulmonary Follow Up
Subjective:
No resp events reported
Intermittent R back pain but improving
Remains on RA, walking in hallway with no help
Review of Systems
General: Fever (n), Sweats (n), Chills (n) and Satisfactory Appetite
HEENT: Epistaxis (n) and Dysphagia
Cardiopulmonary: Dyspnea (n), Dyspnea on Exertion (n) and Cough (n)
GI: Abdominal Pain (n), Nausea (n) and Vomiting (n)
Neuro: Weakness
Objective Data
Data Reviewed
Vital Signs / I&O / Oxygen:
Vital Signs
Temp Pulse Resp BP Pulse Ox
98.3 F 67 18 124/65 96
12/25/23 11:00 12/25/23 11:00 12/25/23 11:00 12/25/23 11:00 12/25/23 11:00
Intake and Output
12/24/23 12/25/23 12/26/23
06:59 06:59 06:59
Intake Total 2159 / 216
Balance 2160 / 2160
SaO2 96
Physical Exam
General: Comfortable
HEENT: Normocephalic and Moist Mucous Membranes
Cardiovascular: Regular Rhythm, Murmur (n), JVD and Peripheral Edema (n)
Respiratory: Clear, Non-Labored Respirations and Stridor (n)
GI: Soft, Non Distended and Non Tender
Neurology: Awake, AO x 3 and No Motor Deficits
Skin: Dry
Labs/Micro/Reports
Lab Data
12/25/23 03:12
12/25/23 03:12
Laboratory Results
12/24/23 12/25/23 12/25/23
20:19 03:12 10:10
APTT 41.0 H 113.8 H Cancelled
Microbiology
12/24/23 02:51 Blood/Venous Blood Culture - Preliminary
No Growth in 24 hours- Final report to follow
12/24/23 02:51 Blood/Venous Blood Culture - Preliminary
No Growth in 24 hours- Final report to follow
[2023-12-26 03:00] VITALS: BP 120/72
[2023-12-26 06:19] VITALS: BMI 33.2
[2023-12-26 07:30] VITALS: BP 126/71
--- NOTE | 2023-12-26 07:37 | W.PN.HOSP.TC ---
Today's Communication/Plan
-
Continue current management. Discharge planning today.
Assessment / Plan
Assessment / Plan
Physical exam:
General: Well Developed, Well Nourished. Some Apparent Distress due to pain.
HEENT: Normocephalic, Atraumatic and Moist Mucous Membranes
Respiratory: Clear to Auscultation; Negative Wheezes, Rales or Rhonchi
Cardiac: Regular Rhythm and S1/S2
GI: Soft, Nontender and Nondistended
Musculoskeletal: No Clubbing, No Cyanosis and No Edema
Neuro: Awake, Alert and Oriented
Psych: Calm
A/P:
Acute multiple�PE's suspect provoked in the setting of lack of mobility over the last few weeks due to recent stress fracture. He does have a history of thromboembolism related to flight in the past(?superficial). Could do hypercoagulable workup
as outpatient if needed.
Associated Rt sided pleurisy due to partial RLL Pul infarct
-Hemodynamically stable
- Heparin gtt--> switched to Eliquis
-Tylenol for pain as needed. He does not want to use any narcotics although I advised him not to allow pain to get out of control. Increase acetaminophen (as long as not to exceed 4 g a day total).
-Ordered some oxycodone if needed. Added bowel regimen.
- O2 to keep POx > 93
- US left lower extremity no DVT
-I checked right lower extremity ultrasound and it came back with right popliteal vein and peroneal vein thrombosis.
-I Ordered transthoracic Echo today.
-PT OT eval
-Discussed with girlfriend at bedside.
-Echo is done and cardiology texted me preliminary results are normal
-Discussed about the possibility of narcotics but he does not want so it is reasonable just to continue with Tylenol.
Hx L [facility]R/Left periprosthetic femur with recent stress fracture:
- PT/OT
-Pain control
DVT Px: on Eliquis
Code: Full
Anticipated Discharge: Today
Subjective/Interval History
-
Date of Service: December 26, 2023
Patient had a better night last night. No more chest discomfort or back pain. Patient denies any chest pain or shortness of breath. No nausea vomiting or diarrhea. Afebrile.
Objective Data
-
Labs:
Laboratory Results
12/26/23
06:36
WBC Pending
Hgb Pending
Hct Pending
Plt Count Pending
Vital Signs:
Vital Signs
Temp Pulse Resp BP Pulse Ox
97.9 F 68 16 120/72 97
12/26/23 03:00 12/26/23 03:00 12/26/23 03:00 12/26/23 03:00 12/26/23 03:00
I&O
12/25/23 12/26/23 12/27/23
06:59 06:59 06:59
Intake Total 2160 / 2160 2160 / 2160
Balance 2160 / 2160 2160 / 2160
[2023-12-26 08:16] LABS: Hematocrit 37.9 % (39.0-52.0); Hemoglobin 12.9 g/dL (13.0-18.0); Mean Corpuscular Hgb 31.5 pg (27.0-31.0); Mean Corpuscular Volume 92.7 fL (80.0-94.0); Mean Platelet Volume 11.4 fL (7.4-10.4); Platelet Count 192 10^3/uL (130-400); Red Blood Cell Count 4.09 10^6/uL (4.70-6.10); Red Cell Dist. Width 11.9 % (11.5-14.5)
[2023-12-26] MEDS: ELIQUIS 10 MG PO (08:27)
[2023-12-26] MEDS: VITAMIN D3 (cholecalciferol) 25 MCG PO (08:27)
[2023-12-26] MEDS: VITAMIN C 500 MG PO (08:27)
[2023-12-26] MEDS: TYLENOL 650 MG PO (08:35)
[2023-12-26 11:30] VITALS: BP 143/93
--- NOTE | 2023-12-26 11:39 | CM ---
Patient seen bedside with significant other, Diego. Patient denies need for outpatient PT, reports he has had a lot of PT in the past. Patient reports his girlfriend Diego will transport home upon discharge. Patient requesting records on a disc
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 CM will continue to follow for discharge planning needs.
Plan; home no needs anticipated.
--- NOTE | 2023-12-26 11:45 | W.PN.PUL3 ---
Today's Communication / Plan
-
AC
Follow TTE
Disposition
Assessment
-
Assessment:
Mr Anthony Ordoñez is a 53/M adm 12-24 with acute onset dyspnea and back pain. Noticed L THR Dec 2022 for severe OA, then developed worsening L thigh pain in Jun 2023, reevaluated by ortho, diagnosed with periprosthetic femur fracture, rec
conservative mgmt with PT and to slow down physical activity, as pain in LLE continued he was reevaluated by second opinion, rec no surgical intervention but to reduce physical activity and use a crutch to reduce strain on LLE periprosthetic
fracture, following instructions he decreased his physical activity substantially since late Oct 2023, though tried to stay active with water exercises and swimming. Noted 3 d h/o R back pain and then acute dyspnea on late evening of 12-23 to the
point that he could not get up from bed due to pain and dyspnea. Reported h/o superficial thrombophlebitis in RLE 4 y ago after extensive airtravel during a period of 10 d, did not require AC but did not receive follow up doppler US. At ER, chest
CTA showed bilateral PE and RLE DVT, started on IV heparin protocol
Impression:
Bilateral PE
RLL, LLL, lingula
R popliteal and peroneal DVT
Basilar atelectatic changes
Pleuritic R back pain
Normal troponin
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
L THR Dec 2022
Periprosthetic femur fracture Jun 2023, rec conservative mgmt
RLE SVT 4 y ago, no AC, no follow up of doppler US
Nonsmoker
Plan:
Resp hathaway stable on RA
Remains hemodyn stable since adm
RLL, LLL, lingular peripheral PE
No candidate for lysis
Started on IV heparin protocol for VTE
Apparently provoked PE and RLE DVT in setting of R periprosthetic femur fracture and significant decrease in physical activity since late Oct 2023 (following advice of conservative mgmt of fracture)
Noted that after L hip surgery in Dec 2022 he received 30 d of prophylactic AC regimen
Reports no personal or family h/o VTE
Uncertain significance of h/o RLE SVT 4 y ago for which no AC was indicated, but did not receive dedicated follow up or doppler afterwards
Transitioned to DOAC 12-25: apixaban, continue length of SID at least 3 m assuming provoked event, however, length of therapy will depend on outpatient reevaluation by pulm and hem
D-dimer 2.58, BNP normal
Pending TTE report
Reviewed TTE Dec 2022 at [place] (patient showed me his echo report online), preop test for hip surgery, normal biventricular function
Based on records review and clinical findings not likely to expect significant changes on TTE
Will need close follow up with pulm ([facility]) and hematology to establish length of AC (rec [place]), assure resolution of clot load, rule out thrombophilia and investigate age/sex related malignancy screening
D/w Mr Ordoñez and his kind at bedside, all questions answered to satisfaction
Disposition efforts
Subjective Data
-
Date of Service:
Date of Service: December 26, 2023
Chief Complaint: Pulmonary Follow Up
Subjective:
No major events reported
R back pain improved
Changed to apixaban yesterday
Received TTE this morning
Review of Systems
General: Fever (n), Sweats (n), Chills and Satisfactory Appetite
HEENT: Epistaxis (n) and Dysphagia (n)
Cardiopulmonary: Dyspnea (n), Cough, Wheezing and Chest Pain (resolving)
GI: Abdominal Pain (n), Nausea (n) and Vomiting (n)
Neuro: Weakness (n)
Objective Data
Data Reviewed
Vital Signs / I&O / Oxygen:
Vital Signs
Temp Pulse Resp BP Pulse Ox
98.1 F 70 18 126/71 96
12/26/23 07:30 12/26/23 07:30 12/26/23 07:30 12/26/23 07:30 12/26/23 07:30
Intake and Output
12/25/23 12/26/23 12/27/23
06:59 06:59 06:59
Intake Total 2160 / 2160 216 / 2160
Balance 2160 / 2160 216 / 2160
SaO2 96
Physical Exam
General: Comfortable
HEENT: Normocephalic and Moist Mucous Membranes
Cardiovascular: Regular Rhythm, Murmur (n), JVD and Peripheral Edema (n)
Respiratory: Clear, Non-Labored Respirations and Stridor (n)
GI: Soft, Non Distended and Non Tender
Neurology: Awake, AO x 3 and No Motor Deficits
Skin: Dry
Labs/Micro/Reports
Lab Data
12/26/23 06:36
12/25/23 03:12
Microbiology
12/24/23 02:51 Blood/Venous Blood Culture - Preliminary
No Growth in 48 hours- Final report to follow
12/24/23 02:51 Blood/Venous Blood Culture - Preliminary
No Growth in 48 hours- Final report to follow
--- NOTE | 2023-12-26 12:17 | W.DCSUMMARY ---
Discharge Summary
Discharge Data
Date of Admission: 12/24/23
Date of Discharge: 12/26/23
-
Pending Results: No
Hospital Course
Patient 53 years old male with history of left total hip replacement and recently diagnosed periprosthetic femur fracture with conservative treatment, past history of superficial thrombophlebitis related to her appointment in the past, came into the
hospital with back pain and shortness of breath and found to have PE. He also had ultrasound of the right lower extremity consistent with DVT. Pulmonary consulted. He was started on anticoagulation with heparin drip and subsequently was
transitioned to oral Eliquis. He initially had discomfort with pain and required some low-dose narcotics. Subsequently he has been able to manage with only Tylenol and does not want to continue with narcotics as outpatient which seems to be
reasonable. He had a transthoracic echocardiogram that was unremarkable with an EF of 71% and normal diastolic function and normal right ventricular size and function. He has been ambulating without any problems. He has been on normal oxygenation
on room air. He is pain-free. He is hemodynamically stable. He will seek further hematology evaluation as outpatient. No other events were noticed. He will be discharged in stable condition today.
Addendum:
Nurse alerted me that cost of Eliquis was elevated when he went to the pharmacy. I instructed him to call the 1 [phone] Eliquis and also I was able to obtain a coupon that he could use for free for the first 30 days. He was able to obtain the
medication-he had a $10 co-pay. Instructed to follow-up with PCP as outpatient for further anticoagulation after the first month.
Discharge duration: 34 minutes
Discharge Plan
-
Patient Disposition: Home (Routine Discharge)
Discharge Diagnosis/Procedures: Pulmonary embolism. Deep vein thrombosis, right lower extremity.
Condition: Fair
Diet: Low Cholesterol
Activity: As tolerated
Driving Restrictions: As prior to admission
Blood Work: Please PCP to order CBC, BMP within 1 week
Referrals:
Chris Perales MD [Family Provider] - in less than 1 week
Kwesi Ann MD [Active] - (New patient, bilateral PE, RLE DVT. See within one m of d/c)
Prescriptions:
New
Eliquis DVT-PE Treat 30D Start 5 mg (74 tabs) tablets,dose pack
See Rx Instructions .ROUTE .COMPLEX Qty: 74 0RF
Rx Instructions:
orally per package directions
acetaminophen 325 mg Tablet
650 mg PO Q4HPRN PRN (Reason: mild pain/ fever>100.5F) Qty: 20 0RF
Continued
ascorbic acid (vitamin C) [Vitamin C] 500 mg Tablet
500 mg PO DAILY
cholecalciferol (vitamin D3) [Vitamin D3] 25 mcg (1,000 unit) Tablet
25 mcg PO DAILY
diphenhydramine-acetaminophen [Tylenol PM Extra Strength] 25-500 mg Tablet
1 tab PO HS PRN (Reason: slep)
Discharge Orders:
Discharge Patient (As Directed); Ordered 12/26/23
Ordered By: Dwayne Farmer
Discharge Date and Time
Discharge Date/Time: 12/26/23 13:38
== END 2023-12-26 13:38 | disposition home or self-care (01) | DRG 176 ==
LOC: 4 WEST ACU 05:56
PROVIDERS: Emergency Medicine; Physician Assistant; ADMITTING PHYSICIAN Internal Medicine; ATTENDING PHYSICIAN Hospitalist; CONSULT PHYSICIAN Internal Medicine Pulmonary Disease; EMERGENCY PHYSICIAN Emergency Medicine; FAMILY PHYSICIAN Internal Medicine
DX: I26.99 Other pulmonary embolism without acute cor pulmonale (principal); I82.401 Acute embolism and thrombosis of unspecified deep veins of right lower extremity; I82.811 Embolism and thrombosis of superficial veins of right lower extremity; M97.9XXA Periprosthetic fracture around unspecified internal prosthetic joint, initial encounter; R09.02 Hypoxemia; R09.1 Pleurisy; Z86.72 Personal history of thrombophlebitis; Z79.01 Long term (current) use of anticoagulants; I26.94 Multiple subsegmental thrombotic pulmonary emboli without acute cor pulmonale
CPT/HCPCS: 71275; 80048; 80053; 81003; 83605; 83880; 84484; 85025; 85027; 85379; 85610; 85730; 87040; 93005; 93306; 93970; 94760; 96365; 96366; 97162; 97165; 99285; Q9967

== ENCOUNTER → 2024-12-27 08:14 | Outpatient (REF) | payer OTHER, SELFPAY | LOC: RAD 08:14 | PROVIDERS: ATTENDING PHYSICIAN Orthopaedic Surgery; FAMILY PHYSICIAN Internal Medicine | DX: Z96.642 Presence of left artificial hip joint (principal) | CPT/HCPCS: 78315; A9503 ==